=== PATIENT | female | born 1940 | race Caucasian/White ===

== ENCOUNTER 2018-10-23 05:27 | Day surgery (SDC) | payer MEDICARE, OTHER ==
[2018-10-23] MEDS ORDERED: Midazolam 1 MG/ML 2 ML SDV IV ONE ×4 (05:28→06:28)
[2018-10-23] MEDS ORDERED: fentaNYL 100 MCG/2 ML SDV IV ONE ×3 (05:28→06:26)
[2018-10-23] MEDS ORDERED: Sodium Chloride 0.9% 10 ML Syringe FLUSH PRN (06:00)
[2018-10-23] MEDS ORDERED: Dextrose 5%-0.45% NaCl 1,000 ML IV SCH (06:00)
[2018-10-23] MEDS ORDERED: Midazolam 1 MG/ML 2 ML SDV ONE (06:12)
[2018-10-23] MEDS ORDERED: fentaNYL 100 MCG/2 ML SDV ONE (06:13)
[2018-10-23 08:47] VITALS: BP 106/52; PULSE 52
--- NOTE | 2018-10-23 12:10 | OR ---
DATE: 10/23/2018 PROCEDURE: Esophagogastroduodenoscopy, NBI including magnification views and multiple pinch biopsies. INSTRUMENT USED: [id number]-[id number] Olympus video panendoscope. PREMEDICATIONS: No oral topical anesthesia used. Fentanyl 100 mcg intravenous, Versed 2 mg intravenous. Nasal O2 cannula. The procedure was done under pulse oximetry, BP recording, and urologist physician. INDICATION: The patient with known Katz's esophagus and remote low-grade dysplasia, surveillance esophagogastroduodenoscopy is performed for detection of any active erosive lesions, surveillance for any evidence of dysplasia and/or malignancy related to Katz's esophagus, endoscopic hemostasis therapy if needed. DESCRIPTION OF PROCEDURE: The scope was passed with ease. Adequate visualization of the esophagus was made from proximal to distal areas. No upper esophageal lesions identified. No distal esophageal stricture. No uphill or downhill esophageal varices. No Lori-Zuñiga tear. No evidence of erosive esophagitis by [place] criteria. Proximally encroaching pink columnar epithelium was noted at around 30 cm distal to the oral verge, NBI including magnification views were obtained. Photographs were taken. Four quadrant biopsies were taken at 2 cm distance apart from the area 30 cm distal to the oral verge, and sent for histopathologic evidence of dysplasia. No proximal gastric varices noted. Gastric fundus examination by retroflexion showed no polypoid lesions. No gastric ulcer, malignant mass, or vascular ectasia identified. Duodenal bulb showed no ulcer. Visualized second part of the duodenum was unremarkable. No bleeding was noted from any of the visualized areas at the completion of examination. IMPRESSION: Katz's esophagus. The patient tolerated the procedure well. [facility] /[id number]
== END 2018-10-23 08:42 | disposition home or self-care (01) ==
LOC: DL.ENDO 05:27
PROVIDERS: ATTEND Internal Medicine Gastroenterology
DX: K22.70 Barrett's esophagus without dysplasia (principal); K21.0 Gastro-esophageal reflux disease with esophagitis; K64.8 Other hemorrhoids; K64.4 Residual hemorrhoidal skin tags; E78.00 Pure hypercholesterolemia, unspecified; F17.210 Nicotine dependence, cigarettes, uncomplicated
CPT/HCPCS: 43239; J2250; J3010; J7042; 88305

== ENCOUNTER 2023-06-01 23:46 | Emergency (ER) | payer MEDICARE, OTHER ==
[2023-06-02 00:26] LABS: BASOPHILS PERCENT AUTO 1.1 % (0.0-1.0); EOSINOPHILS PERCENT AUTO 0.4 % (1.0-3.0); HEMATOCRIT 43.8 % (37.0-47.0); HEMOGLOBIN 13.6 g/dL (12.0-16.0); LYMPHOCYTES PERCENT AUTO 16.8 % (20.5-50.1); MEAN CORPUSCULAR HEMOGLOBIN 23.9 pg (27.0-34.0); MEAN CORPUSCULAR HGB CONC 31.1 g/dL (33.0-35.0); MEAN CORPUSCULAR VOLUME 76.8 fL (80-100); MONOCYTES PERCENT AUTO 3.9 % (2-8); NEUTROPHILS PERCENT AUTO 77.8 % (42.2-75.2); PLATELET COUNT,PLT 291 10^3/uL (150-450); WHITE BLOOD CELL COUNT,WBC 9.3 10^3/uL (5.0-10.0)
[2023-06-02 00:33] LABS: APPEARANCE,URINE CLEAR (CLEAR); BILIRUBIN,URINE NEGATIVE (NEGATIVE); COLOR,URINE YELLOW (YELLOW); GLUCOSE,URINE NEGATIVE (NEGATIVE); KETONES,URINE NEGATIVE (NEGATIVE); LEUKOCYTE ESTERASE,URINE NEGATIVE (NEGATIVE); NITRITE,URINE NEGATIVE (NEGATIVE); OCCULT BLOOD,URINE TRACE-INTACT (NEGATIVE); PROTEIN,URINE NEGATIVE (NEGATIVE); UROBILINOGEN,URINE 0.2 mg/dL (0.2-1.0)
[2023-06-02 00:36] VITALS: PULSE 72
[2023-06-02 00:44] LABS: A/G RATIO 0.7; ALANINE AMINOTRANSFERASE,ALT 12 U/L (14-59); ALBUMIN 3.5 g/dL (3.4-5.0); ALKALINE PHOSPHATASE 98 U/L (46-116); ANION GAP 8.5 mEq/L (7-13); ASPARTATE AMNIOTRANSFERASE,AST 18 U/L (15-37); BILIRUBIN TOTAL 0.6 mg/dL (0.2-1.0); BLOOD UREA NITROGEN,BUN 20 mg/dL (7-18); BUN/CREATININE RATIO 18.3 (No establ ref range); CALCIUM 9.2 mg/dL (8.5-10.1); CARBON DIOXIDE,CO2 34 mmol/L (21-32); CHLORIDE,CL 99 mmol/L (98-107); CREATININE 1.09 mg/dL (0.55-1.02); GLUCOSE RANDOM 128 mg/dL (70-99); POTASSIUM,K 3.5 mmol/L (3.5-5.1); PROTEIN TOTAL,TP 8.3 g/dL (6.4-8.2); SODIUM,NA 138 mmol/L (136-145); TSH ULTRASENSITIVE 4.59 uIU/mL (0.36-3.74)
[2023-06-02 00:45] LABS: AMPHETAMINES,URINE NEGATIVE (NEGATIVE); BACTERIA,URINE OCCASIONAL /HPF (0-FEW/HPF); BARBITURATES,URINE NEGATIVE (NEGATIVE); BENZODIAZEPINE,URINE NEGATIVE (NEGATIVE); EPITHELIAL CELLS,URINE FEW /HPF (NOT SEEN); MDMA (ECSTASY), URINE NEGATIVE (NEGATIVE); METHADONE,URINE NEGATIVE (NEGATIVE); METHAMPHETAMINES,URINE NEGATIVE (NEGATIVE); OPIATES,URINE NEGATIVE (NEGATIVE); OXYCODONE,URINE NEGATIVE (NEGATIVE); PHENCYCLIDINE,URINE NEGATIVE (NEGATIVE); RBC,URINE 0-5 /HPF (0-5); TCA,URINE NEGATIVE (NEGATIVE); WBC,URINE NOT SEEN /HPF (0-5/HPF)
[2023-06-02 00:46] LABS: ESTIMATED GFR 51 mL/min (>=60); ETHANOL BLOOD MEDICAL < 3 mg/dL (0)
[2023-06-02 01:04] LABS: CORONAVIRUS COVID-19 NAA NEGATIVE (NEGATIVE); INFLUENZA A NAA NEGATIVE (NEGATIVE); INFLUENZA B NAA NEGATIVE (NEGATIVE); RESPIRATORY SYNCYTIAL VIR NAA NEGATIVE (NEGATIVE)
[2023-06-02] MEDS ORDERED: traZODone 50 MG Tab PO ONE (03:05)
[2023-06-02 03:45] VITALS: BP 113/58
[2023-06-02 03:59] LABS: PROTHROMBIN TIME 9.9 SEC (9.0-12.0)
== END 2023-06-02 15:25 | disposition home or self-care (01) ==
LOC: DL.ED 23:46
DX: R41.0 Disorientation, unspecified (principal); R60.0 Localized edema; E72.20 Disorder of urea cycle metabolism, unspecified; E78.00 Pure hypercholesterolemia, unspecified; K21.9 Gastro-esophageal reflux disease without esophagitis; Z79.899 Other long term (current) drug therapy; Z20.822 Contact with and (suspected) exposure to COVID-19
CPT/HCPCS: 0241U; 36415; 70450; 80053; 80305-QW; 80307; 81001; 82140; 84443; 85025; 85610; 85730; 99284; 99285; A9270-GY

== ENCOUNTER 2023-10-09 13:29 | Emergency (ER) | payer MEDICARE, OTHER ==
[2023-10-09 14:06] VITALS: PULSE 109
[2023-10-09] MEDS: Sodium Chloride 0.9% 10 ML Syringe FLUSH PRN (14:10)
[2023-10-09] MEDS: Diphtheria,Pertussis(Acell),Tetanus Vaccine 0.5 ML Syringe IM ONE (14:11)
[2023-10-09] MEDS: HYDROmorphone 0.5 MG/0.5 ML Syringe IVPUSH ONE ×2 (14:12→16:04)
[2023-10-09] MEDS: Ondansetron 4 MG/2 ML SDV IV ONE (14:12)
== END 2023-10-09 16:06 ==
LOC: DL.ED 13:29
DX: S06.5X0A Traumatic subdural hemorrhage without loss of consciousness, initial encounter (principal); S72.001A Fracture of unspecified part of neck of right femur, initial encounter for closed fracture; S01.01XA Laceration without foreign body of scalp, initial encounter; S50.01XA Contusion of right elbow, initial encounter; E78.00 Pure hypercholesterolemia, unspecified; K21.9 Gastro-esophageal reflux disease without esophagitis; Z79.899 Other long term (current) drug therapy; W01.10XA Fall on same level from slipping, tripping and stumbling with subsequent striking against unspecified object, initial encounter
CPT/HCPCS: 51702; 70450; 72125; 73030; 73080; 73700; 90471; 90715; 96374; 96375; 96376; 99285; J1170; J2405; J3490